=== PATIENT | female | born 1955 | race Caucasian/White ===

== ENCOUNTER 2024-10-17 09:42 | Emergency (ER) | payer MEDICARE, SELFPAY ==
[2024-10-17 09:48] VITALS: BP 141/82; BMI 28.7
[2024-10-17 10:04] VITALS: BP 142/96
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
[2024-10-17 10:34] LABS: % Basophils 0.4 % (0-2); % Eosinophils 0.5 % (0-6); % Immature Granulocytes 0.3 % (0-0.5); % Lymphocytes 17.1 % (20.5-51.1); % Monocytes 4.6 % (1.7-9.3); % Neutrophils 77.1 % (42.2-75.2); Absolute Lymphocytes 1.3 10^3/uL (1.2-3.4); Absolute Monocytes 0.4 10^3/uL (0.1-0.6); Hematocrit 44.8 % (37.0-47.0); Hemoglobin 14.6 g/dL (12.0-16.0); Mean Corp Hgb Conc. 32.6 g/dL (33.0-37.0); Mean Corpuscular Hgb 29.2 pg (27.0-31.0); Mean Corpuscular Volume 89.6 fL (81.0-99.0); Mean Platelet Volume 10.1 fL (7.4-10.4); Nucleated Red Blood Cells % 0 %; Platelet Count 219 10^3/uL (130-400); Red Cell Dist. Width 12.9 % (11.5-14.5); White Blood Cell Count 7.8 10^3/uL (4.8-10.8)
[2024-10-17 10:48] LABS: D-Dimer 1.39 ug/mlFEU (0.00-0.50)
[2024-10-17 10:58] LABS: Blood Urea Nitrogen 15 mg/dl (7-17); Calcium 9.8 mg/dl (8.4-10.2); Carbon Dioxide 24 mmol/L (22-30); Chloride 100 mmol/L (98-107); Estimated Creatinine Clearance 68 ml/min; Glucose 102 mg/dl (70-99); Potassium 3.8 mmol/L (3.5-5.1); Sodium 138 mmol/L (135-145); eGFR > 60.00
[2024-10-17 11:01] LABS: Troponin I < 0.012 ng/ml
[2024-10-17 11:35] VITALS: BP 130/77
[2024-10-17 12:13] VITALS: BP 132/55
[2024-10-17 13:00] VITALS: BP 131/70
--- NOTE | 2024-10-18 15:06 | CM ---
Addendum entered by Kassidy Salazar RN 10/18/24 15:38:
CM was updated by security that patient was taken by police to an unnamed hotel. CM updated Raysa at [facility] with patient's disposition.
Original Note:
CM received call from [facility] with report that [facility] called to report concerns of homelessness.
== END 2024-10-17 13:47 | disposition home or self-care (01) ==
LOC: EMR 09:42
PROVIDERS: EMERGENCY PHYSICIAN Emergency Medicine; FAMILY PHYSICIAN Dentist General Practice
DX: R06.00 Dyspnea, unspecified (principal); F41.9 Anxiety disorder, unspecified; F20.9 Schizophrenia, unspecified
CPT/HCPCS: 99284; 71046; 71275; 80048; 84484; 85025; 85379; 93005; Q9967

== ENCOUNTER 2024-10-23 08:55 | Emergency (ER) | payer MEDICARE, SELFPAY ==
[2024-10-23 08:59] VITALS: BP 155/73
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
--- NOTE | 2024-10-23 09:51 | CM ---
Addendum entered by Kassidy Salazar RN 10/23/24 10:12:
CM met with patient in room. Patient's sister Leslie is in room for history. Patient lives in [facility] apartments. Sister stated that she was with patient and Tuesday. Patient's sister noted patient was missing on Tuesday. Fortunately,
patient was found by police inside her apartment building. Leslie stated that she feels that patient has not taken her medication correctly due to not having a car and not being able to get to the pharmacy. Leslie feels that patient is very
confused. Patient is known to [facility].
Plan for crisis consult. CM updated ED MUSEUM GUIDE.
Original Note:
CM was updated that patient is currently in the ER. CM updated [employer] that patient has been found and is currently in the ER
[2024-10-23 09:56] VITALS: BMI 27.3
[2024-10-23 10:00] VITALS: BP 155/66
--- NOTE | 2024-10-23 10:15 | EDRN ---
Received patient on stretcher. Sister with patient who will interrupt patient while answering questions to give her impute. Per sister the patient was missing for 2 days and was found in an empty unlocked apartment in the building where she lives.
Sister insisting that the patient needs to be hospitalized for medication adjustment because she has not taken her medicine since and ran out of her Ativan. Sister stated that she spoke to the patient's therapist and was told her to bring
the patient to the ED for medicine adjustment and admission. Patient denies any thoughts of suicide. Patient unsure why she was in the wrong apartment. Denies any nausea,vomiting,diarrhea and urinary symptoms. Patient stated that she has been having
intermittent episodes of indigestion.
--- NOTE | 2024-10-23 10:28 | CM ---
KASH received call from Jada Gould from [facility]. She is requesting update on patient's disposition.
Jada
[phone]
[2024-10-23 10:33] LABS: Hematocrit 45.1 % (37.0-47.0); Hemoglobin 14.6 g/dL (12.0-16.0); Mean Corp Hgb Conc. 32.4 g/dL (33.0-37.0); Mean Corpuscular Hgb 29.7 pg (27.0-31.0); Mean Corpuscular Volume 91.7 fL (81.0-99.0); Mean Platelet Volume 11.1 fL (7.4-10.4); Platelet Count 249 10^3/uL (130-400); Red Blood Cell Count 4.92 10^6/uL (4.20-5.40); Red Cell Dist. Width 13.3 % (11.5-14.5); White Blood Cell Count 10.8 10^3/uL (4.8-10.8)
[2024-10-23 10:40] LABS: ALT (SGPT) 54 U/L (0-35); AST (SGOT) 59 U/L (14-36); Albumin 5.2 g/dl (3.5-5.0); Alkaline Phosphatase 83 U/L (38-126); Blood Urea Nitrogen 28 mg/dl (7-17); Calcium 9.6 mg/dl (8.4-10.2); Carbon Dioxide 21 mmol/L (22-30); Chloride 102 mmol/L (98-107); Estimated Creatinine Clearance 67 ml/min; Glucose 88 mg/dl (70-99); Lipase 364 U/L (23-300); Potassium 3.7 mmol/L (3.5-5.1); Sodium 141 mmol/L (135-145); Total Bilirubin 1.1 mg/dl (0.2-1.3); Total Protein 8.3 g/dl (6.3-8.2); eGFR > 60.00
[2024-10-23 11:00] VITALS: BP 158/69
[2024-10-23 12:57] LABS: Urine Albumin Trace (Neg - Trace); Urine Bilirubin 1+ (Negative); Urine Character Slightly Cloudy (Clear); Urine Color Yellow; Urine Glucose Negative (Negative); Urine Ketone 3+ (Negative); Urine Leukocyte 1+ (Negative); Urine Nitrite Negative (Negative); Urine Occult Blood Negative (Negative); Urine Specific Gravity 1.025 (<1.030); Urine Urobilinogen 2+ (Neg - 1+)
[2024-10-23 13:12] LABS: Urine Bacteria Few (Negative); Urine Red Blood Cell 0-2 /HPF (0-2); Urine Squamous Cell >30 /LPF (Few)
[2024-10-23 14:46] VITALS: BP 156/59
[2024-10-23 14:50] LABS: COVID-19 Antigen Negative (Negative)
[2024-10-23] MEDS: NSS 1000 IV (14:56)
[2024-10-23 15:00] VITALS: BP 153/61
[2024-10-23 16:00] VITALS: BP 150/60
== END 2024-10-23 16:00 ==
LOC: EMR 08:55
PROVIDERS: Registered Nurse; CONSULT PHYSICIAN Psychiatry & Neurology Psychiatry; EMERGENCY PHYSICIAN Emergency Medicine
DX: E86.0 Dehydration (principal); Z11.52 Encounter for screening for COVID-19; F20.9 Schizophrenia, unspecified; E03.9 Hypothyroidism, unspecified; K21.9 Gastro-esophageal reflux disease without esophagitis; E78.5 Hyperlipidemia, unspecified; F41.9 Anxiety disorder, unspecified
CPT/HCPCS: 99285; 94640; 76700; 80053; 81003; 81015; 83690; 85027; 87086; 87811; 93005; 96360